=== PATIENT | female | born 1980 | race Caucasian/White ===

== ENCOUNTER 2018-02-10 13:21 | Outpatient (CLI) | payer OTHER | END 2018-02-10 13:40 | disposition home or self-care (01) | LOC: NST 13:21 | DX: Z34.83 Encounter for supervision of other normal pregnancy, third trimester (principal) ==

== ENCOUNTER 2018-02-10 14:32 | Inpatient (IN) | payer OTHER ==
[~2018-02-10] VITALS: Ht 157.5 cm; Wt 3.2 kg
[2018-02-23] MEDS ORDERED: OBSTETRIX EC C1 EACH PO (11:08)
[2018-02-23] MEDS ORDERED: [UNRECOGNIZED DRUG - OTHER] PO (11:09)
[2018-02-23] MEDS ORDERED: INTEGRA CAPSUL1 EACH PO (11:09)
[2018-02-23] MEDS ORDERED: ASA81 MG PO (11:10)
[2018-02-23] MEDS ORDERED: FOLBEE PO (11:10)
== END 2018-03-06 14:06 | DRG 766 ==
LOC: OB/GYN 03-04 05:30 → O/R 03-04 05:30 → SURG 03-04 07:00 → OB/GYN 03-04 13:32
PROVIDERS: Obstetrics & Gynecology
PROC: 0UL70ZZ Occlusion of Bilateral Fallopian Tubes, Open Approach (ICD-10-PCS; 2018-03-04)
PROC: 4A033R1 Measurement of Arterial Saturation, Peripheral, Percutaneous Approach (ICD-10-PCS; 2018-03-04)
PROC: 4A1HXCZ Monitoring of Products of Conception, Cardiac Rate, External Approach (ICD-10-PCS; 2018-03-04)
PROC: 10D00Z1 Extraction of Products of Conception, Low, Open Approach (ICD-10-PCS; principal; 2018-03-04 07:00)
DX: O34.211 Maternal care for low transverse scar from previous cesarean delivery (principal); O75.82 Onset (spontaneous) of labor after 37 completed weeks of gestation but before 39 completed weeks gestation, with delivery by (planned) cesarean section; Z3A.39 39 weeks gestation of pregnancy; Z37.0 Single live birth; Z30.2 Encounter for sterilization

== ENCOUNTER 2018-02-19 14:26 | Outpatient (CLI) | payer OTHER | END 2018-02-19 16:45 | disposition home or self-care (01) | LOC: NST 14:26 | DX: Z34.83 Encounter for supervision of other normal pregnancy, third trimester (principal) ==

== ENCOUNTER 2018-02-24 13:37 | Outpatient (CLI) | payer OTHER ==
[~2018-02-24 13:37] MED LIST: ASA81 MG PO; FOLBEE PO; INTEGRA CAPSUL1 EACH PO; OBSTETRIX EC C1 EACH PO; [UNRECOGNIZED DRUG - OTHER] PO
== END 2018-02-24 16:50 | disposition home or self-care (01) ==
LOC: NST 13:37
DX: Z34.83 Encounter for supervision of other normal pregnancy, third trimester (principal)

== ENCOUNTER → 2018-02-24 15:08 | Outpatient (CLI) | payer OTHER | END | disposition home or self-care (01) | LOC: LAB 15:08 | DX: Z34.83 Encounter for supervision of other normal pregnancy, third trimester (principal); D68.8 Other specified coagulation defects ==

== ENCOUNTER → 2018-03-03 | Outpatient (CLI) | payer OTHER | END | disposition home or self-care (01) | LOC: NST 15:00 | DX: Z34.83 Encounter for supervision of other normal pregnancy, third trimester (principal) ==